=== PATIENT | male | born 1940 | race Caucasian/White ===

== ENCOUNTER 2022-04-26 19:55 | Inpatient (IN) | payer MEDICARE, OTHER ==
[~2022-04-26] VITALS: Ht 170.2 cm; Wt 60.8 kg
--- NOTE | 2022-04-26 20:10 | NUR ---
TO ER ROOM 4. WANDA FROM THE [facility] C/O WEAKNESS AND POSSIBLE UTI. PT IS AAOX1, HX DEMENTIA. SALGADO CATH IN PLACE UPON ARRIVAL. EMS ALSO NOTED RECENT FEMUR FX ON R LEG. RR EVEN AND NON LABORED. CONNECTED TO MONITOR
[2022-04-26 20:28] LABS: BASOPHILS % (AUTO) 0.8 % (0.0-2.0); EOSINOPHILS % (AUTO) 1.3 % (0.0-6.0); HEMATOCRIT 40 % (39-51); HEMOGLOBIN 13.1 g/dL (13.5-17.5); LYMPHOCYTES % (AUTO) 17.4 % (20.0-44.0); MEAN CORPUSCULAR HGB CONC 33 g/dl (31.0-36.0); MEAN CORPUSCULAR VOLUME 92 fL (80-96); MONOCYTES # (AUTO) 0.5 K/uL (0.1-1.30); MONOCYTES % (AUTO) 8.7 % (2.0-12.0); NEUTROPHILS % (AUTO) 71.8 % (43.0-81.0); PLATELET COUNT (AUTO) 380 K/uL (150-450); RED BLOOD CELL COUNT(AUTO) 4.36 MIL/uL (4.5-6.0); WHITE BLOOD COUNT (AUTO) 5.6 K/uL (4.3-11.0)
--- NOTE | 2022-04-26 20:30 | NUR ---
IV LINE ESTABLISHED, [id number]
--- NOTE | 2022-04-26 20:31 | NUR ---
URINE COLLECTED AND SENT TO LAB
[2022-04-26 20:45] LABS: ALANINE AMINOTRANSFERASE 22 U/L (12-78); ALBUMIN 2.8 g/dL (3.4-5.0); ALKALINE PHOSPHATASE 121 U/L (46-116); ASPARTATE AMINOTRANSFERASE 27 U/L (15-37); BILIRUBIN,DIRECT 0.2 mg/dL (0.0-0.2); BILIRUBIN,TOTAL 0.7 mg/dL (0.2-1.0); CALCIUM, SERUM 9.7 mg/dL (8.5-10.1); CARBON DIOXIDE 25 mmol/L (21-32); CHLORIDE 104 mmol/L (98-107); CREATININE 1.1 mg/dL (0.6-1.3); GLUCOSE 93 mg/dL (74-106); POTASSIUM 3.9 mmol/L (3.5-5.1); SODIUM SERUM 140 mmol/L (136-145); TOTAL PROTEIN, SERUM 8.1 g/dL (6.4-8.2); UREA NITROGEN, BLOOD 27 mg/dL (7-18)
[2022-04-26] MEDS ORDERED: CEFTRIAXONE 1GM BAG (ER ONLY) 50 ML IV ONE (20:56)
[2022-04-26] MEDS ORDERED: IV NS 0.9% 1,000 ML IV ONE (21:00)
[2022-04-26] MEDS ORDERED: CEFTRIAXONE 1GM BAG (ER ONLY) 1 GM/50 ML PIGGYBACK IV ONE (21:00)
--- NOTE | 2022-04-26 21:10 | NUR ---
XRAY AT BEDSIDE
--- NOTE | 2022-04-26 21:10 | NUR ---
COVID SWAB COLLECTED
[2022-04-26 21:12] LABS: BILIRUBIN,URINE NEGATIVE (NEGATIVE); COLOR,URINE YELLOW (YELLOW); LEUKOCYTE ESTERASE ,URINE LARGE (NEGATIVE); NITRITE, URINE POSITIVE (NEGATIVE); PROTEIN,URINE 30 mg/dl (NEGATIVE); UGLUCOSE NEGATIVE (NEGATIVE); UROBILINOGEN,URINE 0.2 EU/dL (0.2)
--- NOTE | 2022-04-26 22:12 | NUR ---
DEONNA BOWENS AT PT'S BEDSIDE
[2022-04-26 22:20] LABS: BACTERIA,URINE 3+ /HPF (None Seen); RBC,URINE 51-80 /HPF (0-2); SQUAMOUS EPITHELIAL CELL,UR 0-2 /HPF (None Seen); WBC,URINE 81-100 /HPF (0-3)
[2022-04-26] MEDS ORDERED: CEFU500T66 PO (22:23)
[2022-04-26] MEDS ORDERED: DIGO125T PO (22:25)
[2022-04-26] MEDS ORDERED: METO100T14 PO (22:25)
[2022-04-26] MEDS ORDERED: MIDO10TA PO (22:25)
[2022-04-26] MEDS ORDERED: TRAM50TA2 PO (22:26)
[2022-04-26] MEDS ORDERED: RIVA10TA PO (22:26)
[2022-04-26] MEDS ORDERED: ACETAMINOPHEN 325 MG TABLET PO PRN (22:30)
[2022-04-26] MEDS ORDERED: ONDANSETRON HCL/PF 4 MG/2 ML VIAL IVP PRN (22:30)
[2022-04-26] MEDS ORDERED: ZOLPIDEM TARTRATE 5 MG TABLET PO PRN (22:30)
[2022-04-26] MEDS ORDERED: Z GUARD REMEDY 4 OZ OINT TP PRN (22:30)
[2022-04-26] MEDS ORDERED: MAGNESIUM HYDROXIDE 30 ML UDC PO PRN (22:30)
[2022-04-26] MEDS ORDERED: MAG HYDROX/AL HYDROX/SIMETH 30 ML UDC PO PRN (22:30)
--- NOTE | 2022-04-26 23:20 | NUR ---
LACTIC 3.0
[2022-04-27 04:59] LABS: BASOPHILS % (AUTO) 0.4 % (0.0-2.0); EOSINOPHILS % (AUTO) 2.4 % (0.0-6.0); HEMATOCRIT 37 % (39-51); HEMOGLOBIN 12.1 g/dL (13.5-17.5); LYMPHOCYTES # (AUTO) 0.8 K/uL (0.8-4.8); LYMPHOCYTES % (AUTO) 14.1 % (20.0-44.0); MEAN CORPUSCULAR HGB CONC 33 g/dl (31.0-36.0); MEAN CORPUSCULAR VOLUME 93 fL (80-96); MONOCYTES # (AUTO) 0.7 K/uL (0.1-1.30); MONOCYTES % (AUTO) 12.8 % (2.0-12.0); NEUTROPHILS # (AUTO) 3.9 K/uL (1.8-8.9); NEUTROPHILS % (AUTO) 70.3 % (43.0-81.0); PLATELET COUNT (AUTO) 299 K/uL (150-450); RED BLOOD CELL COUNT(AUTO) 3.98 MIL/uL (4.5-6.0); WHITE BLOOD COUNT (AUTO) 5.6 K/uL (4.3-11.0)
[2022-04-27 05:06] LABS: CALCIUM, SERUM 8.9 mg/dL (8.5-10.1); CREATININE 0.9 mg/dL (0.6-1.3); MAGNESIUM 2.2 mg/dL (1.8-2.4); PHOSPHORUS 3.4 mg/dL (2.5-4.9); POTASSIUM 3.8 mmol/L (3.5-5.1)
--- NOTE | 2022-04-27 07:10 | NUR ---
REceived pt from Lianna mirza pt asleepy no sob awake confused
--- NOTE | 2022-04-27 07:13 | NUR ---
REPORT GIVEN TO SUZANNE RODRIGUEZ FOR INDIRA
--- NOTE | 2022-04-27 08:24 | NUR ---
HAND OFF TO ANEL RN TO ROOM 321-1 VIA SHARLA STABLE VS AWake and alert no weekness
[2022-04-27 09:30] VITALS: BP 111/76
--- NOTE | 2022-04-27 09:30 | NUR ---
ADMITTING RN NOTES: ADMITTED 81 YO MALE PT TO [facility] FROM ER DEPT, PT ACCOMPANIED BY RN ARASELI AND TRANSPORTER VIA CLARK. PT ALERT AND ORIENTED X 2 WITH EPISODES OF CONFUSION AND FORGETFULNESS, NEEDS FREQUENT REORIENTATION. NO SOB OR CARDIAC DISTRESS NOTED. ABDOMEN SOFT. PT ORIENTED TO UNIT, STAFFS AND ROOM MATE.PT WAS ADMITTED WITH LEG BAG FC AND CHANGED IT TO SALGADO CATHETER. IV ACCESS NOTED ON RIGHT HAND G 22 PATENT AND INTACT AND FLUSHING WELL IVF NS @100ML/HR.SKIN IS WARM, SKIN ISSUES NOTED AND PHOTOS TAKEN AND FILED TO PT'S CHART. SAFETY PRECAUTIONS INITIATED: BED LOCKED AND IN LOWEST POSITION, RETAIL STORE MANAGER RAILS UP X 2. CALL LIGHT WITHIN EASY REACH. BED SIDE TABLE AND PITCHER OF WATER PROVIDED. KEPT RESTED AND COMFORTABLE. WILL MONITOR PT ACCORDINGLY.
[2022-04-27] MEDS: METOPROLOL TARTRATE 25 MG TABLET PO SCH ×2 (10:41→17:00)
[2022-04-27] MEDS: RIVAROXABAN 10 MG TABLET PO SCH ×2 (10:43→17:31)
[2022-04-27] MEDS: IV NS 0.9% 1,000 ML IV PRN ×2 (11:12→21:22)
[2022-04-27] MEDS: TRAMADOL HCL 50 MG TABLET PO SCH ×3 (12:47→17:30)
[2022-04-27 16:00] VITALS: BP 92/68
--- NOTE | 2022-04-27 17:49 | NUR ---
RN NOTES: PT PULLED OUT IV ACCESS. RE-INSERTED IV ACCESS ON RIGHT HAND G 22. PT TOLERATED WELL.
--- NOTE | 2022-04-27 18:47 | NUR ---
MS RN CLOSING NOTES: PT IN BED, AWAKE. A/O X 2 WITH EPISODES OF CONFUSION AND FORGETFULNESS. NEEDS FREQUENT REORIRENTATION. NO SOB OR CARDIAC DISTRESS NOTED. IV ACCESS ON RIGHT HAND GAUGE 22, PATENT, INTACT AND INFUSING WELL IVF NS 1L @100CC/HR. SALGADO CATHETER DRAINING TEA COLORED URINE BY GRAVITY, INTACT. KEPT RESTED AND COMFORTABLE. SAFETY PRECAUTION MAINTAINED: BED LOCKED AND IN LOWEST POSITION, SIDE REAILS UP X 2, BED ALARM ON. CALL LIGHT IN EASY REACH FOR HELP. ENDORSED TO NOC SHIFT FOR INDIRA.
--- NOTE | 2022-04-27 19:53 | NUR ---
MS RN OPENING NOTES: RECEIVED PATIENT AWAKE IN BED, BED IN LOW POSITION, CALL LIGHTS WITHIN REACH, NO COMPLAIN OF PAIN AND DISCOMFORT AT THIS TIME, PATIENT IS CONFUSED, ON BED REST, REMIND TO USE THE CALL LIGHTS WHEN NEEDED ASSISTANCE, ON SALGADO CATHETER 50CC URINE OUTPUT, IV LINE AT RIGHT HAND #20 WITH ONGOING NSS@100ML/HR INFUSING WELL, PATIENT IS FALL RISK WILL DO FREQUENT ROUNDS, PATIENT KEPT CLEAN AND DRY ALL NEEDS MET WILL CONTINUE TO MONITOR.
[2022-04-27 20:00] VITALS: BP 119/91
[2022-04-27] MEDS: CEFTRIAXONE 1 G in IV D5W 50 ML IV SCH (21:01)
--- NOTE | 2022-04-28 00:32 | NUR ---
MS RN NOTES: PATIENT REFUSED ROUTINE PAIN MEDICINE OFFERED BUT PATIENT WAS TOO SLEEPY AND REFUSING.,
[2022-04-28] MEDS: IV NS 0.9% 1,000 ML IV PRN ×2 (05:46→18:25)
[2022-04-28] MEDS: TRAMADOL HCL 50 MG TABLET PO SCH ×4 (05:50→17:34)
--- NOTE | 2022-04-28 06:56 | NUR ---
MS RN CLOSING NOTES: PATIENT SLEEP IN BED COMFORTABLY, BED IN LOW POSITION CALL LIGHTS WITHIN REACH, NO COMPLAIN OF PAIN AND DISCOMFORT AT THIS TIME, ON ROOM AIR SATURATING WELL, IV LINE AT AND #22 WITH ONGOING NSS@100ML/HR INFUSING WELL, PATIENT KEPT CLEAN AND DRY ALL NEEDS MET ENDORSE TO INCOMING SHIFT.
[2022-04-28 07:00] VITALS: BP 146/83
--- NOTE | 2022-04-28 08:00 | NUR ---
RN OPENING NOTE PATIENT IS SLEEPING BUT EASILY BEING AROUSED. AO X 1. PATIENT IS CONFUSED. PATIENT IS ON RA, NO S/S OF DISTRESS. PT IS CALM, NO SIGNS OF HAVING PAIN. IV ACCESS @ L HAND. IV IS PATENT RUNNING WITH NS AT 100 ML/HOUR PER MD ORDER. CALL LIGHT WITHIN REACH, SIDE RAILS UP X 2, BED IS IN LOWEST POSITION. BED ALARM IS ON.
[2022-04-28] MEDS: METOPROLOL TARTRATE 25 MG TABLET PO SCH ×2 (08:59→17:34)
--- NOTE | 2022-04-28 11:35 | NUR ---
MS RN NOTE SEEN BY PT
[2022-04-28 16:00] VITALS: BP 106/80
[2022-04-28] MEDS: RIVAROXABAN 10 MG TABLET PO SCH (17:35)
--- NOTE | 2022-04-28 19:04 | NUR ---
MS RN CLOSING NOTE PATIENT IS SLEEPING BUT EASILY BEING AROUSED. AO X 1. PATIENT IS CONFUSED. PATIENT IS ON RA, NO S/S OF DISTRESS. PT IS CALM, NO SIGNS OF HAVING PAIN. IV ACCESS @ L HAND. IV IS PATENT RUNNING WITH NS AT 100 ML/HOUR PER MD ORDER. CALL LIGHT WITHIN REACH, SIDE RAILS UP X 2, BED IS IN LOWEST POSITION. BED ALARM IS ON. ENDORSED TO NEXT SHIFT FOR CONTINUITY OF CARE.
--- NOTE | 2022-04-28 19:30 | NUR ---
MS RN OPENING NOTE RECEIVED PATIENT AWAKE IN BED. PATIENT IS AO X 1. PATIENT IS CONFUSED. PATIENT IS ON RA, NO S/S OF DISTRESS NOTED. NO PAIN AND DISCOMFORT NOTED. IV ACCESS @ R HAND G 22 INTACT. IV IS PATENT RUNNING WITH NS AT 100 ML/HOUR PER MD ORDER. ALL NEEDS ATTENDED. ALL SAFETY MEASURES IN PLACE CALL LIGHT WITHIN REACH, SIDE RAILS UP X 2, BED IS IN LOWEST POSITION. BED ALARM IS ON. WILL CONTINUE TO MONITOR.
[2022-04-28 20:00] VITALS: BP 95/66
[2022-04-28] MEDS: CEFTRIAXONE 1 G in IV D5W 50 ML IV SCH (21:10)
[2022-04-29] MEDS: TRAMADOL HCL 50 MG TABLET PO SCH ×5 (00:20→18:00)
--- NOTE | 2022-04-29 06:48 | NUR ---
MS RN CLOSING NOTE PATIENT AWAKE IN BED. PATIENT IS AO X 1. PATIENT IS CONFUSED. PATIENT IS ON RA, NO S/S OF DISTRESS NOTED. NO PAIN AND DISCOMFORT NOTED. IV ACCESS @ R HAND G 24 INTACT. IV IS PATENT RUNNING WITH NS AT 100 ML/HOUR PER MD ORDER. ALL DUE MEDS GIVEN ORDERED ALL NEEDS ATTENDED. ALL SAFETY MEASURES IN PLACE CALL LIGHT WITHIN REACH, SIDE RAILS UP X 2, BED IS IN LOWEST POSITION AND LOCKED. BED ALARM IS ON. SALGADO CATHETER INTACT OUTPUT NOTED 300 ML.WILL ENDORSE FOR INDIRA.
[2022-04-29 08:00] VITALS: BP_SYST 120; BP_SYST 161; BP_DIAS 64; BP_DIAS 79
--- NOTE | 2022-04-29 08:00 | NUR ---
MS RN OPENING NOTES PATIENT IS SLEEPING IN BED CALMLY, EASILY BEING WAKING UP. AO X 1 (TO HIS NAME ONLY). PATIENT IS CONFUSED. PATIENT IS ON RA, NO S/S OF DISTRESS OR DISCOMFORT. PT HAS NO SIGNS OF HAVING PAIN. IV ACCESS @ R HAND. IV SITE IS PATENT. CALL LIGHT WITHIN REACH, SIDE RAILS UP X 2, BED IS IN LOWEST POSITION. BED ALARM IS ON.
[2022-04-29] MEDS: METOPROLOL TARTRATE 25 MG TABLET PO SCH ×3 (08:48→17:13)
--- NOTE | 2022-04-29 09:04 | NUR ---
MS RN NOTE Medication METOPROLOL (25 MG/EACH) WAS SCANNED AND GIVEN TO THE PATIENT. HOWEVER, PATIENT DROPPED ONE PILL (25 MG)ON THE FLOOR. WASTED THE MEDICATION IN THE WASTE MEDICATION BIN, WITNESSED BY ARGELIA ANDERSEN RN. GET ANOTHER PILL METOPROLOL (25 MG/EACH) FROM THE OMNICELL AND GIVEN TO THE PATIENT. PATIENT TOOK THE MEDICATION ORALLY.
[2022-04-29] MEDS: IV NS 0.9% 1,000 ML IV PRN (09:47)
--- NOTE | 2022-04-29 11:15 | NUR ---
MS RN NOTES PATIENT WOUND CARE CONSULT IS DONE. ORDERS ARE PENDING. WAIT FOR FURTHER INTERVENTION.
--- NOTE | 2022-04-29 11:25 | NUR ---
WOUND CARE CONSULT: PT PRESENTS WITH SACRAL DEEP TISSUE INJURY IN EVOLUTION AND RT HEEL OPEN DEEP TISSUE INJURY IN EVOLUTION, PRESENT ON ADMISSION. DR MARCE GILLIS CALLED FOR SURGICAL CONSULT AND DR PAINTING CALLED FOR DPM CONSULT. RECOMMENDATIONS MADE FOR SKIN PROTECTION AND WOUND CARE (SACRAL WOUND). DEFER TO DPM FOR LOWER EXTREMITY WOUND. DISCUSSED WITH NURSING STAFF. IN AGREEMENT WITH PLAN OF CARE. Addendum: 04/29/22 at 1127 by ERROL FRANKLIN WNDNU Amended: Links added.
[2022-04-29 16:00] VITALS: BP 119/79
--- NOTE | 2022-04-29 16:23 | NUR ---
SS consult requested for Rt heel and sacral pressure ulcers fro [facility]. SW will follow up at a later time.
[2022-04-29] MEDS: PROSOURCE / PROSTAT (PYXIS) 30 ML UDC GT SCH (17:11)
[2022-04-29] MEDS: ENSURE ENLIVE 237 ML LIQUID (VANILLA) PO SCH (17:18)
[2022-04-29] MEDS: RIVAROXABAN 10 MG TABLET PO SCH (18:00)
--- NOTE | 2022-04-29 18:00 | NUR ---
MS RN NOTES PT REFUSED TAKING HIS MEDICATION AND SPIT THEM OUT. MEDICATION WASTED AND RETURNED THE UNOPENED ONES VIA OMNICELL. JENNIFER ANDERSEN WITNESSED.
--- NOTE | 2022-04-29 19:00 | NUR ---
MS RN CLOSING NOTES: PT IS IN BED, AWAKE AND WATCHING TV.. A/O X 1 WITH CONFUSION. NO SOB OR DISTRESS. PATIENT PULLED OUT HIS IV ACCESS DUE TO CONFUSION. NEW IV ACCESS ESTABLISHED ON RIGHT HAND GAUGE 22, PATENT, INTACT. SALGADO CATHETER DRAINING DARK YELLOW COLOR URINE BY GRAVITY, INTACT. AFETY PRECAUTION MAINTAINED: BED LOCKED AND IN LOWEST POSITION, SIDE RAILS UP X 2, BED ALARM ON. CALL LIGHT IN EASY REACH FOR HELP. ENDORSE TO RN NEXT SHIFT FOR CONTINUING CARE.
[2022-04-29 20:00] VITALS: BP 110/66
[2022-04-29] MEDS: CEFTRIAXONE 1 G in IV D5W 50 ML IV SCH (20:46)
[2022-04-30] MEDS: TRAMADOL HCL 50 MG TABLET PO SCH ×4 (06:00→17:29)
--- NOTE | 2022-04-30 06:30 | NUR ---
MS RN CLOSING NOTES: PT IS IN BED, ASLEEP A/O X 1 WITH CONFUSION/ FORGETFUL NO SOB OR DISTRESS. PATIENT PULLED OUT HIS IV ACCESS DUE TO CONFUSION. NEW IV ACCESS ESTABLISHED ON RAC GAUGE 22, PATENT, INTACT. SALGADO CATHETER DRAINING CLEAR YELLOW COLOR URINE BY GRAVITY, INTACT. SAFETY PRECAUTION MAINTAINED: BED LOCKED AND IN LOWEST POSITION, SIDE RAILS UP X 2, BED ALARM ON. CALL LIGHT IN EASY REACH FOR HELP. ENDORSE TO RN NEXT SHIFT FOR CONTINUING CARE.
--- NOTE | 2022-04-30 07:30 | NUR ---
RN Receiving Report Patient AOx2-3, able to express his own concerns. Patient shows no signs of distress or discomfort. States his excited for breakfast. Discussed plan of care, pt verbalized understanding. Will continue to monitor throughout shift, provide care as needed. All safety precautions taken, call light and table within reach, bed at lowest position.
[2022-04-30] MEDS: ENSURE ENLIVE 237 ML LIQUID (VANILLA) PO SCH ×2 (08:35→17:08)
[2022-04-30] MEDS: PROSOURCE / PROSTAT (PYXIS) 30 ML UDC GT SCH ×3 (08:35→17:04)
[2022-04-30] MEDS: METOPROLOL TARTRATE 25 MG TABLET PO SCH ×2 (08:39→17:08)
[2022-04-30 09:15] VITALS: BP 98/71
--- NOTE | 2022-04-30 09:17 | NUR ---
WOUND CARE: DISCUSSED SKIN PROTECTION AND WOUND CARE WITH NURSING STAFF. RECOMMEND PROTECT RT HEEL DEEP TISSUE INJURY WITH FOAM DRESSING AND GENTLY WRAP WITH KERLIX TIL SEEN BY PODIATRY. DISCUSSED WITH NURSING STAFF.
[2022-04-30 16:06] VITALS: BP 98/71
[2022-04-30] MEDS: CLOTRIMAZOLE 1% 15 GM TUBE TP SCH (17:08)
[2022-04-30] MEDS: POVIDONE-IODINE OINT 28.4 GM TUBE TP SCH (17:08)
[2022-04-30] MEDS: RIVAROXABAN 10 MG TABLET PO SCH (17:31)
--- NOTE | 2022-04-30 18:10 | NUR ---
RN Closing Note Patient AOx2, able to express his own concerns. Care was provided as needed, patient reported lower back pain, pain medication was administered as prescribed. IV live with no signs of pain or infiltration. All safety precautions taken throughout shift, call light and table within reach, bed at lowest position. Patient remained safe and stable throughout shift.
[2022-04-30 20:00] VITALS: BP 108/66
[2022-04-30] MEDS: CEFTRIAXONE 1 G in IV D5W 50 ML IV SCH (20:25)
--- NOTE | 2022-04-30 21:56 | NUR ---
RN OPENING NOTE Patient AOx2, able to express his own concerns. Care provided as needed, patient reported lower back pain, pain medication. IV live with no signs of pain or infiltration. All safety precautions taken, call light and table within reach, bed at lowest position.
[2022-05-01] MEDS: TRAMADOL HCL 50 MG TABLET PO SCH ×3 (06:00→12:42)
--- NOTE | 2022-05-01 06:33 | NUR ---
RN OPENING NOTE Patient AOx2, able to express his own concerns. Care provided as needed, patient refused all scheduled pain medication during the shift pt reported he had no pain. IV was pulled out new iv acces on the rfa 20g s/l wrapped with kerlix with no signs of pain or infiltration. All safety precautions taken,call light and table within reach, bed at lowest position.
--- NOTE | 2022-05-01 07:30 | NUR ---
RN Receiving Report PT AOx2 able to express his own concerns such as pain and location. Patients is forgetful, will continue to re-orient throughout shift. Patient states he has no complains. Discussed plan of care with patient he verbalized agreement. All safety precautions taken, call light and table within reach. Bed at lowest position. Will continue to monitor throughout shift and provide care as needed.
[2022-05-01] MEDS: METOPROLOL TARTRATE 25 MG TABLET PO SCH (08:45)
[2022-05-01] MEDS: ENSURE ENLIVE 237 ML LIQUID (VANILLA) PO SCH (08:45)
[2022-05-01] MEDS: PROSOURCE / PROSTAT (PYXIS) 30 ML UDC GT SCH ×2 (08:45→12:42)
[2022-05-01] MEDS: POVIDONE-IODINE OINT 28.4 GM TUBE TP SCH (09:00)
--- NOTE | 2022-05-01 09:29 | NUR ---
Medication Non-[place] Per Pharmacy Providine-Iodine is out of stock.
[2022-05-01] MEDS: CLOTRIMAZOLE 1% 15 GM TUBE TP SCH (09:31)
--- NOTE | 2022-05-01 10:30 | NUR ---
Reflesher MARIIA received a consult request for wound from a SNF. Pt. is a 81 y.o. white male who was admitted for a UTI. MARIIA had attempted to meet with pt. yesterday, 04/30/22 but pt. was asleep and unresponsive. MARIIA is following up re case. MARIIA contacted [facility] (TEL: [phone]) and spoke with Alondra Hawkins to gather information re (regarding) pt.'s injuries. MARIIA was informed that the pt. arrived at the facility on 04/23/22 and appeared well with no injuries, the pt. was sent to the hospital on 04/26/22 from [facility] for increased confusion and was dx with a UTI at the ER. Per the [facility] spokes person, the pt. did not obtain his injuries at their facility. MARIIA was also informed that [place] to admission to [facility]. There is not need to follow up with a report.
[2022-05-01 11:15] VITALS: BP 121/81
[2022-05-01] MEDS ORDERED: SULF1TAB47 PO (14:24)
[2022-05-01 16:00] VITALS: BP 97/61
--- NOTE | 2022-05-01 16:50 | NUR ---
RN D/C Note Discharge orders in, confirmed with charge nurse. Patient stable, orders for PO antibiotics confirmed with physician. Patient agrees with discharge. Called facility [facility] [phone], provided discharge report to Zachary RN at facility for continuity of care. Transportation services/EMT are here to transport patient to facility. All safety precautions taken. Discharge packet given to transportation service.
== END 2022-05-01 17:20 | DRG 689 ==
LOC: ER 20:02 → TRANSITION 04-27 04:29 → MED 04-27 08:28
PROVIDERS: ADMIT Nurse Practitioner Acute Care; ATTEND Internal Medicine
DX: N39.0 Urinary tract infection, site not specified (principal); G93.41 Metabolic encephalopathy; I48.20 Chronic atrial fibrillation, unspecified; E44.0 Moderate protein-calorie malnutrition; D68.59 Other primary thrombophilia; E87.20 Acidosis, unspecified; Z20.822 Contact with and (suspected) exposure to COVID-19; F03.90 Unspecified dementia, unspecified severity, without behavioral disturbance, psychotic disturbance, mood disturbance, and anxiety; Z88.5 Allergy status to narcotic agent; B96.89 Other specified bacterial agents as the cause of diseases classified elsewhere; R79.89 Other specified abnormal findings of blood chemistry; Z96.641 Presence of right artificial hip joint; I11.0 Hypertensive heart disease with heart failure; I50.9 Heart failure, unspecified; N40.0 Benign prostatic hyperplasia without lower urinary tract symptoms; E88.09 Other disorders of plasma-protein metabolism, not elsewhere classified; B35.1 Tinea unguium; E78.5 Hyperlipidemia, unspecified; I25.10 Atherosclerotic heart disease of native coronary artery without angina pectoris; S90.31XA Contusion of right foot, initial encounter; X58.XXXA Exposure to other specified factors, initial encounter; Y92.9 Unspecified place or not applicable; L85.3 Xerosis cutis; Z74.09 Other reduced mobility
CPT/HCPCS: 36415; 70450-TC; 71045-TC; 73620-TC; 80048-TC; 80076-TC; 81001; 83605-TC; 83735-TC; 84100-TC; 84484-TC; 85025-TC; 87081-TC; 87086-TC; 87186-TC; 92526; 92611-TC; 97116-TC; 97530-TC; A4217; A6253; C9803; G0378; J0696; J7030; J7060

== ENCOUNTER 2022-05-02 18:59 | Emergency (ER) | payer OTHER ==
[~2022-05-02] VITALS: Ht 167.6 cm; Wt 63.5 kg
[~2022-05-02 18:59] MED LIST: CEFU500T66 PO; DIGO125T PO; METO100T14 PO; MIDO10TA PO; RIVA10TA PO; SULF1TAB47 PO; TRAM50TA2 PO
--- NOTE | 2022-05-02 19:15 | NUR ---
BRANDON ADAMS "From [facility]- Was found on the floor ?Fall BS-227" PATIENT IS DEMENTED. AAOX2. CANNOT RECALL THE PLACE WHERE THE INCIDENT HAPPEN. PATIENT IS CONVERSANT. NOT COMPLAINING OF PAIN AT THE MOMENT. ATTACHED TO MONITOR. VITALS CHECKED.
--- NOTE | 2022-05-02 19:20 | NUR ---
TOLL BRIDGE ATTENDANT AT BEDSIDE
--- NOTE | 2022-05-02 19:20 | NUR ---
URBAN FORESTER AT BEDSIDE
--- NOTE | 2022-05-02 19:20 | NUR ---
REPORT RECEIVED FROM JENNIFER JEWELL
[2022-05-02 19:44] LABS: CALCIUM, SERUM 9.6 mg/dL (8.5-10.1); CREATININE 0.9 mg/dL (0.6-1.3); POTASSIUM 3.9 mmol/L (3.5-5.1)
--- NOTE | 2022-05-02 19:52 | NUR ---
IV CANNULA G20 INSERTED ON RIGHT AC.
[2022-05-02 20:02] LABS: BASOPHILS # (AUTO) 0.1 K/uL (0.0-0.2); BASOPHILS % (AUTO) 0.9 % (0.0-2.0); EOSINOPHILS % (AUTO) 1.2 % (0.0-6.0); HEMATOCRIT 41 % (39-51); HEMOGLOBIN 13.7 g/dL (13.5-17.5); LYMPHOCYTES # (AUTO) 0.5 K/uL (0.8-4.8); MEAN CORPUSCULAR HGB CONC 33 g/dl (31.0-36.0); MEAN CORPUSCULAR VOLUME 91 fL (80-96); MONOCYTES # (AUTO) 0.4 K/uL (0.1-1.30); MONOCYTES % (AUTO) 6.6 % (2.0-12.0); NEUTROPHILS # (AUTO) 5.5 K/uL (1.8-8.9); NEUTROPHILS % (AUTO) 83.3 % (43.0-81.0); PLATELET COUNT (AUTO) 392 K/uL (150-450); RED BLOOD CELL COUNT(AUTO) 4.55 MIL/uL (4.5-6.0); WHITE BLOOD COUNT (AUTO) 6.6 K/uL (4.3-11.0)
--- NOTE | 2022-05-02 21:28 | NUR ---
[facility] CALLED FOR BLS GOING BACK TO SNF PER BETSY ETA - 45 MIN
--- NOTE | 2022-05-02 23:00 | NUR ---
IV CANNULA REMOVED BY PATIENT. DRESSING APPLIED
--- NOTE | 2022-05-02 23:00 | NUR ---
Patient discharged to home in stable condition. Written and verbal after care instructions given. Patient verbalizes understanding of instruction.
--- NOTE | 2022-05-02 23:04 | NUR ---
REPORT GIVEN TO [facility] NURIS UNIT 340
--- NOTE | 2022-05-02 23:32 | NUR ---
REPORT GIVEN TO MICHELL TATUM OF THE [facility].
[2022-05-02 23:37] VITALS: BP 122/81
== END 2022-05-02 23:38 ==
LOC: ER 19:04
DX: R41.82 Altered mental status, unspecified (principal); I11.0 Hypertensive heart disease with heart failure; I50.9 Heart failure, unspecified; F41.9 Anxiety disorder, unspecified; Z88.8 Allergy status to other drugs, medicaments and biological substances; Z79.899 Other long term (current) drug therapy
CPT/HCPCS: 36415; 71045-TC; 72170-TC; 80048-TC; 85025-TC

== ENCOUNTER 2022-05-12 16:31 | Emergency (ER) | payer OTHER ==
[~2022-05-12] VITALS: Ht 170.2 cm; Wt 81.6 kg
[2022-05-12] MEDS ORDERED: MULT-447 PO (16:46)
[2022-05-12] MEDS ORDERED: SENN-261 PO (16:46)
[2022-05-12] MEDS ORDERED: ONDA4TAB5 PO (16:46)
--- NOTE | 2022-05-12 16:54 | NUR ---
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 AAOX3, BREATHING EVEN AND NON LABORED, CONNECTED TO MONITOR, AWAITING MD HOLLAND
--- NOTE | 2022-05-12 17:14 | NUR ---
DR CHRISTINE AT BEDSIDE FOR EVAL
[2022-05-12] MEDS ORDERED: MORPHINE SULFATE INJ 2 MG/ML DISP.SYRIN ONE (17:41)
[2022-05-12 17:46] LABS: BASOPHILS % (AUTO) 0.2 % (0.0-2.0); EOSINOPHILS % (AUTO) 0.2 % (0.0-6.0); HEMATOCRIT 42 % (39-51); HEMOGLOBIN 13.6 g/dL (13.5-17.5); LYMPHOCYTES # (AUTO) 0.6 K/uL (0.8-4.8); LYMPHOCYTES % (AUTO) 8.9 % (20.0-44.0); MEAN CORPUSCULAR HGB CONC 33 g/dl (31.0-36.0); MEAN CORPUSCULAR VOLUME 92 fL (80-96); MONOCYTES # (AUTO) 0.5 K/uL (0.1-1.30); MONOCYTES % (AUTO) 7.3 % (2.0-12.0); NEUTROPHILS # (AUTO) 5.4 K/uL (1.8-8.9); NEUTROPHILS % (AUTO) 83.4 % (43.0-81.0); PLATELET COUNT (AUTO) 212 K/uL (150-450); RED BLOOD CELL COUNT(AUTO) 4.53 MIL/uL (4.5-6.0); WHITE BLOOD COUNT (AUTO) 6.5 K/uL (4.3-11.0)
[2022-05-12 17:55] LABS: CALCIUM, SERUM 9.9 mg/dL (8.5-10.1); CREATININE 1.2 mg/dL (0.6-1.3); POTASSIUM 4.1 mmol/L (3.5-5.1)
[2022-05-12] MEDS ORDERED: LIDOCAINE 2% JEL UROJET 10 ML MM ONE ×2 (17:57→18:00)
[2022-05-12] MEDS ORDERED: MORPHINE SULFATE INJ 2 MG/ML DISP.SYRIN IV ONE (18:00)
--- NOTE | 2022-05-12 18:59 | NUR ---
URINE OUTPUT 900CC VIA SALGADO
[2022-05-12 20:26] LABS: BILIRUBIN,URINE SMALL (NEGATIVE); COLOR,URINE DARK YELLOW (YELLOW); LEUKOCYTE ESTERASE ,URINE TRACE (NEGATIVE); NITRITE, URINE NEGATIVE (NEGATIVE); PROTEIN,URINE 30 mg/dl (NEGATIVE); UGLUCOSE NEGATIVE (NEGATIVE); UROBILINOGEN,URINE 0.2 EU/dL (0.2)
[2022-05-12 20:44] LABS: BACTERIA,URINE 1+ /HPF (None Seen); RBC,URINE 81-100 /HPF (0-2); SQUAMOUS EPITHELIAL CELL,UR 0-2 /HPF (None Seen)
[2022-05-12 20:45] LABS: YEAST,URINE Few /HPF (None Seen)
[2022-05-12] MEDS ORDERED: IV NS 0.9% 1,000 ML IV ONE (21:30)
[2022-05-12] MEDS ORDERED: CEFTRIAXONE 1GM BAG (ER ONLY) 1 GM/50 ML PIGGYBACK IV ONE (22:30)
[2022-05-12] MEDS ORDERED: CEFTRIAXONE 1GM BAG (ER ONLY) 50 ML IV ONE (22:32)
--- NOTE | 2022-05-12 23:30 | NUR ---
[facility] CALLED FOR BLS GOING BACK TO SNF PER LEIDY - 45 MIN
[2022-05-13 00:43] VITALS: BP 105/77
--- NOTE | 2022-05-13 00:43 | NUR ---
[facility] to [facility] in no distress. IV removed. Catheter intact and site benign. Pressure and 4x4 applied to site. No bleeding noted.
== END 2022-05-13 00:43 ==
LOC: ER 16:33
DX: T83.091A Other mechanical complication of indwelling urethral catheter, initial encounter (principal); E86.0 Dehydration; I11.0 Hypertensive heart disease with heart failure; I50.9 Heart failure, unspecified; F41.9 Anxiety disorder, unspecified; Z88.8 Allergy status to other drugs, medicaments and biological substances; Z79.899 Other long term (current) drug therapy
CPT/HCPCS: 99285; 96365; 96375; 51702; 85025; 80048; 81001; 36415; J3490; J7030; J2270; J0696